=== PATIENT | female | born 1990 | race Two or more races ===

== ENCOUNTER 2022-01-22 14:15 | Inpatient (IN) | payer MEDICAID, OTHER ==
[~2022-01-22] VITALS: Ht 154.9 cm; Wt 66.4 kg
[2022-01-22] MEDS ORDERED: ACETAMINOPHEN 325 MG TAB PO ONE (16:00)
[2022-01-22 16:22] LABS: Albumin 3.2 g/dL (3.4-5.0); BUN/Creatinine Ratio 9.1; Calcium 7.9 mg/dL (8.5-10.1); Magnesium 2.4 mg/dL (1.6-2.6); Potassium 3.6 mmol/L (3.5-5.1)
[2022-01-22 16:24] LABS: Bilirubin, Total 0.6 mg/dL (0.2-1.0); Total Protein 6.9 g/dL (6.4-8.2)
[2022-01-22] MEDS ORDERED: IOHEXOL 350 MG/ML 100ML IJ ONE (16:27)
[2022-01-22 16:33] LABS: INR 0.95 (0.9-1.15); Partial Thromboplastin Time 27.8 sec (24.6-33.4)
[2022-01-22 16:45] LABS: Basophils # (auto) 0 10 ^3/uL (0-0.2); Basophils % (auto) 0.3 % (0.0-2.0); Eosinophils # (auto) 0.2 10 ^3/uL (0-0.8); Hemoglobin 8.2 g/dL (12.2-16.2); Lymphocytes # (auto) 1.2 10 ^3/uL (0.4-5.4); Mean Corpuscular Hemoglobin 31.4 pg (28.0-32.0); Neutrophils # (auto) 11.7 10 ^3/uL (1.6-8.6)
[2022-01-22 16:46] LABS: Eosinophils % (auto) 1.6 % (0.0-7.0); Hematocrit 24.9 % (36.0-46.0); Lymphocytes % (auto) 8.6 % (10.0-50.0); Monocytes # (auto) 0.7 10 ^3/uL (0-1.3); Monocytes % (auto) 4.8 % (0.0-12.0); Neutrophils % (auto) 84.7 % (37.0-80.0); Nucleated Red Blood Cells % 0.2 %; Red Blood Cells 2.62 10^6/uL (4.0-5.20); Red Cell Distribution Width 12.9 % (11.8-14.3); White Blood Cell 13.8 10^3/uL (4.4-10.8)
[2022-01-22] MEDS ORDERED: LACTATED RINGER'S 2,000 ML IV ONE (18:30)
[2022-01-22 18:59] LABS: Urine Bacteria NONE SEEN /hpf (None Seen); Urine Blood Negative /uL (Negative); Urine Mucus FEW (None Seen); Urine WBC <1 /hpf (0 - 5)
[2022-01-22 19:00] LABS: Urine Specific Gravity > 1.050 (1.001-1.035)
[2022-01-22] MEDS ORDERED: SODIUM CHLORIDE 0.9% 2,000 ML IV ONE (19:00)
[2022-01-22] MEDS ORDERED: cefTRIAXone 1GM/50ML D5W 50 ML IV ONE (20:00)
[2022-01-22] MEDS ORDERED: AZITHROMYCIN 500MG/ 250ML 250 ML IV ONE (20:00)
[2022-01-22] MEDS ORDERED: KETOROLAC TROMETH 30 MG/ML 1ML VIAL IV ONE (21:45)
[2022-01-22] MEDS ORDERED: ONDANSETRON HCL 4 MG/2 ML VIAL IV ONE (21:45)
[2022-01-22] MEDS ORDERED: MORPHINE SULFATE INJ 2 MG/ml SYRG IV PRN (22:00)
[2022-01-22] MEDS ORDERED: NITROGLYCERIN 0.4 MG SL TAB SL PRN (22:00)
[2022-01-22] MEDS ORDERED: SODIUM CHLORIDE 0.9% 1,000 ML IV ONE (22:00)
[2022-01-22] MEDS ORDERED: TEMAZEPAM 15 MG CAP PO PRN (22:00)
[2022-01-22] MEDS ORDERED: ONDANSETRON HCL 4 MG/2 ML VIAL IV PRN (22:00)
[2022-01-22 22:24] LABS: Amphetamine Screen, Urine NEGATIVE (NEGATIVE); Barbiturate Scree,Urine NEGATIVE (NEGATIVE); Benzodiazephine Screen, Urine NEGATIVE (NEGATIVE); Cannabinoid Screen, Urine NEGATIVE (NEGATIVE); Cocaine Screen, Urine NEGATIVE (NEGATIVE); Opiate Scree,Urine NEGATIVE (NEGATIVE); Phencyclidine Screen, Urine NEGATIVE (NEGATIVE)
[2022-01-22] MEDS: SODIUM CHLORIDE 0.9% 1,000 ML IV SCH (22:41)
[2022-01-23] MEDS ORDERED: KETOROLAC TROMETH 30 MG/ML 1ML VIAL IV ONE (00:30)
[2022-01-23] MEDS ORDERED: dilTIAZem 25 MG/5 ML VIAL IV ONE (00:30)
[2022-01-23] MEDS: dilTIAZem HCL 50 MG/10 ML VIAL IV ONE ×2 (00:33→00:44)
[2022-01-23] MEDS: ACETAMINOPHEN 325 MG TAB PO PRN ×3 (04:33→23:45)
[2022-01-23 05:01] LABS: Eosinophils # (auto) 0.2 10 ^3/uL (0-0.8); Hemoglobin 7.4 g/dL (12.2-16.2)
[2022-01-23 05:05] LABS: Basophils # (auto) 0 10 ^3/uL (0-0.2); Basophils % (auto) 0.3 % (0.0-2.0); Eosinophils % (auto) 1.4 % (0.0-7.0); Lymphocytes # (auto) 0.8 10 ^3/uL (0.4-5.4); Lymphocytes % (auto) 5.4 % (10.0-50.0); Mean Corpuscular Hemoglobin 31.8 pg (28.0-32.0); Mean Corpuscular Hgb Conc. 33.5 g/dL (32.0-36.0); Mean Corpuscular Volume 95.1 fL (80.0-100.0); Monocytes # (auto) 0.9 10 ^3/uL (0-1.3); Monocytes % (auto) 5.8 % (0.0-12.0); Neutrophils # (auto) 12.8 10 ^3/uL (1.6-8.6); Neutrophils % (auto) 87.1 % (37.0-80.0); Nucleated Red Blood Cells % 0.2 %; Red Blood Cells 2.32 10^6/uL (4.0-5.20); Red Cell Distribution Width 12.6 % (11.8-14.3); White Blood Cell 14.7 10^3/uL (4.4-10.8)
[2022-01-23 05:18] LABS: Albumin 2.7 g/dL (3.4-5.0); Potassium 3.2 mmol/L (3.5-5.1)
[2022-01-23 05:20] LABS: BUN/Creatinine Ratio 7.1
[2022-01-23 05:22] LABS: Bilirubin, Total 0.4 mg/dL (0.2-1.0)
[2022-01-23] MEDS: HYDROcodone-ACET 5/325MG TAB PO PRN ×3 (08:09→20:55)
[2022-01-23] MEDS ORDERED: cefTRIAXone 1GM/50ML D5W 50 ML IV SCH (09:00)
[2022-01-23] MEDS ORDERED: POTASSIUM EFFERVESENT TAB 25 MEQ PO ONE (09:15)
[2022-01-23] MEDS: ENOXAPARIN SOD 40 MG/0.4 ML SYRINGE SC SCH (09:59)
[2022-01-23] MEDS: SODIUM CHLORIDE 0.9% 1,000 ML IV SCH ×2 (09:59→21:32)
[2022-01-23] MEDS ORDERED: PANTOPRAZOLE 40 MG TAB PO SCH (10:00)
[2022-01-23 10:02] LABS: % Iron Saturation 11.3 % (15-50)
[2022-01-23] MEDS ORDERED: SODIUM CHLORIDE 0.9% 500 ML IV ONE (13:15)
[2022-01-23 14:31] LABS: White Blood Cell 16.2 10^3/uL (4.4-10.8)
[2022-01-23 14:33] LABS: Hematocrit 19.7 % (36.0-46.0); Mean Corpuscular Hemoglobin 31.2 pg (28.0-32.0); Mean Corpuscular Hgb Conc. 32.8 g/dL (32.0-36.0); Mean Corpuscular Volume 95.1 fL (80.0-100.0); Red Blood Cells 2.07 10^6/uL (4.0-5.20); Red Cell Distribution Width 13.1 % (11.8-14.3)
[2022-01-23 14:45] LABS: Hemoglobin 6.5 g/dL (12.2-16.2)
[2022-01-23 14:47] LABS: Basophils % (manual) 0 (0.0-2.0); Blast Cells 0; Eosinophils % (manual) 0 (0-7); Metamyelocytes % 0; Myelocytes % 0; Promyelocytes % 0; Reactive Lymphocytes 0
[2022-01-23] MEDS ORDERED: AZITHROMYCIN 500MG/ 250ML 250 ML IV ONE (15:00)
[2022-01-23 16:05] LABS: Band Neutrophils % (manual) 10; Lymphocytes % (manual) 8 (10.0-50.0); Monocytes % (manual) 2 (0-12)
[2022-01-23] MEDS ORDERED: VANCOMYCIN PER PHARMACY 0 MG IV STA (16:46)
[2022-01-23] MEDS ORDERED: CEFEPIME 2 GM in SODIUM CHL 0.9% 50 ML IV ONE (17:00)
[2022-01-23 17:36] VITALS: BP 100/59
[2022-01-23 17:51] VITALS: BP 105/70
[2022-01-23] MEDS ORDERED: VANCOMYCIN PER PHARMACY 0 MG IV SCH (18:30)
[2022-01-23 19:10] VITALS: BP 114/66
[2022-01-23 19:50] VITALS: BP 139/72
[2022-01-23 20:50] VITALS: BP 138/72
[2022-01-23] MEDS: VANCOMYCIN 750mg/250ml 250 ML IV SCH (20:55)
[2022-01-23 22:00] VITALS: BP 139/72
[2022-01-23] MEDS: CEFEPIME 2 GM in SODIUM CHL 0.9% 50 ML IV SCH (22:25)
[2022-01-23] MEDS: SUCRALFATE 1 GM TAB PO SCH (22:25)
[2022-01-23] MEDS: PANTOPRAZOLE 40 MG TAB PO SCH (22:26)
[2022-01-24] MEDS: VANCOMYCIN 750mg/250ml 250 ML IV SCH ×3 (04:50→20:44)
[2022-01-24 05:00] VITALS: BP 108/66
[2022-01-24 05:42] LABS: Basophils # (auto) 0 10 ^3/uL (0-0.2); Eosinophils # (auto) 0.3 10 ^3/uL (0-0.8); Monocytes # (auto) 0.7 10 ^3/uL (0-1.3)
[2022-01-24 05:46] LABS: Basophils % (auto) 0.2 % (0.0-2.0); Eosinophils % (auto) 2.3 % (0.0-7.0); Hematocrit 24.7 % (36.0-46.0); Hemoglobin 8.5 g/dL (12.2-16.2); Lymphocytes # (auto) 1.2 10 ^3/uL (0.4-5.4); Lymphocytes % (auto) 9.5 % (10.0-50.0); Mean Corpuscular Hemoglobin 32.4 pg (28.0-32.0); Mean Corpuscular Hgb Conc. 34.4 g/dL (32.0-36.0); Mean Corpuscular Volume 94.1 fL (80.0-100.0); Monocytes % (auto) 5.6 % (0.0-12.0); Neutrophils # (auto) 10.1 10 ^3/uL (1.6-8.6); Neutrophils % (auto) 82.4 % (37.0-80.0); Nucleated Red Blood Cells % 0.1 %; Red Blood Cells 2.62 10^6/uL (4.0-5.20); Red Cell Distribution Width 12.9 % (11.8-14.3); White Blood Cell 12.2 10^3/uL (4.4-10.8)
[2022-01-24 05:55] LABS: Potassium 3.2 mmol/L (3.5-5.1)
[2022-01-24 06:02] LABS: BUN/Creatinine Ratio 11.8; Calcium 7.7 mg/dL (8.5-10.1)
[2022-01-24] MEDS: CEFEPIME 2 GM in SODIUM CHL 0.9% 50 ML IV SCH ×3 (06:05→21:52)
[2022-01-24] MEDS: SUCRALFATE 1 GM TAB PO SCH ×4 (06:05→21:52)
[2022-01-24] MEDS ORDERED: POTASSIUM EFFERVESENT TAB 25 MEQ PO ONE (08:30)
[2022-01-24] MEDS: ENOXAPARIN SOD 40 MG/0.4 ML SYRINGE SC SCH (08:36)
[2022-01-24] MEDS: PANTOPRAZOLE 40 MG TAB PO SCH ×2 (08:36→21:52)
[2022-01-24] MEDS: HYDROcodone-ACET 5/325MG TAB PO PRN ×2 (08:37→21:16)
[2022-01-24 09:33] VITALS: BP 134/64
[2022-01-24] MEDS ORDERED: POTASSIUM EFFERVESENT TAB 25 MEQ GT ONE (09:45)
[2022-01-24] MEDS ORDERED: AZITHROMYCIN 500MG/ 250ML 250 ML IV SCH (10:00)
[2022-01-24] MEDS: SODIUM CHLORIDE 0.9% 1,000 ML IV SCH ×2 (10:30→21:04)
[2022-01-24 13:08] VITALS: BP 116/69
[2022-01-24 16:43] VITALS: BP 125/74
[2022-01-24 22:00] VITALS: BP 121/75
[2022-01-25] MEDS: VANCOMYCIN 1GM/250ML 250 ML IV SCH ×3 (02:49→18:45)
[2022-01-25 05:00] VITALS: BP 120/74
[2022-01-25] MEDS: CEFEPIME 2 GM in SODIUM CHL 0.9% 50 ML IV SCH ×3 (05:38→21:44)
[2022-01-25] MEDS: SUCRALFATE 1 GM TAB PO SCH ×4 (06:18→21:44)
[2022-01-25 06:32] LABS: BUN/Creatinine Ratio 14.3; Calcium 8.2 mg/dL (8.5-10.1); Potassium 3.7 mmol/L (3.5-5.1)
[2022-01-25 06:36] LABS: Basophils # (auto) 0.1 10 ^3/uL (0-0.2); Basophils % (auto) 0.6 % (0.0-2.0); Eosinophils # (auto) 0.4 10 ^3/uL (0-0.8); Eosinophils % (auto) 3.9 % (0.0-7.0); Hematocrit 27.2 % (36.0-46.0); Hemoglobin 9.2 g/dL (12.2-16.2); Lymphocytes # (auto) 1.5 10 ^3/uL (0.4-5.4); Lymphocytes % (auto) 14.5 % (10.0-50.0); Mean Corpuscular Hemoglobin 31.9 pg (28.0-32.0); Mean Corpuscular Volume 93.9 fL (80.0-100.0); Monocytes # (auto) 0.8 10 ^3/uL (0-1.3); Monocytes % (auto) 7.3 % (0.0-12.0); Neutrophils # (auto) 7.6 10 ^3/uL (1.6-8.6); Neutrophils % (auto) 73.7 % (37.0-80.0); Nucleated Red Blood Cells % 0.2 %; Red Cell Distribution Width 13.6 % (11.8-14.3); White Blood Cell 10.4 10^3/uL (4.4-10.8)
[2022-01-25] MEDS: SODIUM CHLORIDE 0.9% 1,000 ML IV SCH ×2 (08:50→22:28)
[2022-01-25] MEDS: HYDROcodone-ACET 5/325MG TAB PO PRN ×3 (08:56→23:28)
[2022-01-25] MEDS: PANTOPRAZOLE 40 MG TAB PO SCH ×2 (08:57→21:44)
[2022-01-25] MEDS: ENOXAPARIN SOD 40 MG/0.4 ML SYRINGE SC SCH (08:57)
[2022-01-25 09:00] VITALS: BP 137/81
[2022-01-25 13:00] VITALS: BP 127/82
[2022-01-25 17:00] VITALS: BP 130/82
[2022-01-25 22:00] VITALS: BP 137/86
[2022-01-26] MEDS: VANCOMYCIN 1GM/250ML 250 ML IV SCH ×2 (01:56→09:00)
[2022-01-26 05:00] VITALS: BP 128/75
[2022-01-26] MEDS: CEFEPIME 2 GM in SODIUM CHL 0.9% 50 ML IV SCH ×2 (06:22→12:55)
[2022-01-26] MEDS: SUCRALFATE 1 GM TAB PO SCH ×2 (06:22→11:10)
[2022-01-26] MEDS: HYDROcodone-ACET 5/325MG TAB PO PRN (06:46)
[2022-01-26] MEDS: SODIUM CHLORIDE 0.9% 1,000 ML IV SCH (08:12)
[2022-01-26 09:00] VITALS: BP 124/74
[2022-01-26] MEDS: ENOXAPARIN SOD 40 MG/0.4 ML SYRINGE SC SCH (09:46)
[2022-01-26] MEDS: PANTOPRAZOLE 40 MG TAB PO SCH (09:46)
[2022-01-26 13:00] VITALS: BP 141/77
[2022-01-26] MEDS ORDERED: NAPR375T27 PO (15:19)
[2022-01-26 16:07] VITALS: BP 141/77
== END 2022-01-26 17:00 | disposition home or self-care (01) | DRG 813 ==
LOC: ER 14:15 → EDBD 14:15 → TELE 21:50 → TELE-CENTR 01-23 18:39
PROVIDERS: ADMIT Nurse Practitioner; ATTEND Internal Medicine Pulmonary Disease
PROC: 30233N1 Transfusion of Nonautologous Red Blood Cells into Peripheral Vein, Percutaneous Approach (ICD-10-PCS; principal; 2022-01-23)
DX: T81.89XA Other complications of procedures, not elsewhere classified, initial encounter (principal); A41.9 Sepsis, unspecified organism; B34.9 Viral infection, unspecified; E87.6 Hypokalemia; D62 Acute posthemorrhagic anemia; Y83.8 Other surgical procedures as the cause of abnormal reaction of the patient, or of later complication, without mention of misadventure at the time of the procedure; Z20.822 Contact with and (suspected) exposure to COVID-19; Z82.0 Family history of epilepsy and other diseases of the nervous system; Y92.89 Other specified places as the place of occurrence of the external cause
CPT/HCPCS: 36415; 71260; 74177; 80048; 80053; 80202; 80307; 81001; 82270; 83010; 83540; 83550; 83605; 83735; 84443; 84484; 84702; 85007; 85025; 85027; 85379; 85610; 85730; 86850; 86900; 86901; 86920; 87040; 87077; 87186; 87205; 87493; 87804; 93005; 93306; 96361; 96365; 96366; 96368; 96372; 96375; 96376; 99291; G0378; J0696; J1885; J2405

== ENCOUNTER 2024-08-15 15:04 | Emergency (ER) | payer MEDICAID ==
[~2024-08-15] VITALS: Ht 154.9 cm; Wt 62.4 kg
[~2024-08-15 15:04] MED LIST: NAPR-957 PO
[2024-08-15 16:31] VITALS: BP 122/82; PULSE 78; RESP 18; TEMP 98.2; O2SAT 98
--- NOTE | 2024-08-15 16:50 | DVH ---
CLINICAL INDICATION: R hand/wrist pain TECHNIQUE: 3-view right radiographic views of the right were obtained. Comparison: None FINDINGS/IMPRESSION: There is no evidence of acute fracture or dislocation. The visualized joint space is well maintained. The alignment is anatomical.
[2024-08-15] MEDS ORDERED: PRED20TA2 PO (17:01)
--- NOTE | 2024-08-15 17:01 | ED.PDOC ---
Musculoskeletal HPI Comments 34-year-old female presents for right wrist pain x1 week. Onset occurred after opening soda bottle. No other complaint or concern. Chief Complaint: Upper Extremity Time Seen by MD: 15:46 Primary Care Provider: UNKNOWN Reviewed Notes: Nurses Notes, Medications, Allergies Allergies: Coded Allergies: Codeine (Verified Allergy, Unknown, 01/22/22) Home Meds Active Scripts Prednisone (Prednisone) 20 Mg Tab, 60 MG PO DAILY for 5 Days, #15 TAB 0 Refills Prov:DANICA DOE MANAGER NEONATAL 08/15/24 Naproxen (Naproxen) 375 Mg Tab, 1 TAB PO BID PRN for 15 Days, #30 TAB 5 Refills Prov:EISENBERGSANDRINE Hall Tomas VILLA 01/26/22 Information Source: Patient Mode of Arrival: Ambulatory Past Medical History PAST MEDICAL HISTORY: Denies Surgical History: Denies all surgeries [employer] History: No Pertinent SHE[employer]ATE History Family History Family History: Reviewed,noncontributory to illness Social History Smoker: Non-Smoker Alcohol: Denies ETOH Use Drugs: Denies Drug Use Lives In: Home All Other Systems: Reviewed and Negative Physical Exam General Appearance: No Apparent Distress, Normal HEENT: Normal ENT Inspection, Pharynx Normal, TMs Normal Neck: Full Range of Motion, Non-Tender, Normal, Normal Inspection Respiratory: Chest Non-Tender, Lungs Clear, No Accessory Muscle Use, No Respiratory Distress, Normal Breath Sounds Cardiovascular: No Edema, No JVD, No Murmur, No Gallop, Normal Peripheral Pulses, Regular Rate/Rhythm Breast Exam: Deferred Gastrointestinal: No Organomegaly, Non Tender, No Pulsatile Mass, Normal Bowel Sounds, Soft Genitalia: Deferred Pelvic: Deferred Rectal: Deferred Extremities: No calf tenderness, Normal capillary refill, Normal inspection, Normal range of motion, Non-tender, No pedal edema Musculoskeletal : Apperance: Normal Neurologic: Alert, No Motor Deficits, Normal Affect, Normal Mood, No Sensory Deficits Cerebellar Function: Normal Reflexes: Normal Skin: Dry, Normal Color, Warm Lymphatic: No Adenopathy Was a procedure done? Was a procedure done?: No Differential Diagnosis EXT Differential Diagnosis: Sprain X-Ray, Labs, Meds, VS Vital Signs Date Time Temp Pulse Resp B/P (MAP) Pulse Ox O2 Delivery O2 Flow Rate FiO2 08/15/24 16:31 98.2 78 18 122/82 (95) 98 98.2 08/15/24 16:31 78 18 98 Room Air 08/15/24 15:18 98.0 74 17 118/78 (91) X-Ray, Labs, Meds, VS Comment History and examination consistent of muscular injury X-rays ordered, read by radiologist and reviewed by me Take IBU 600 w/ food as needed for pain Recommended heat therapy Reviewed RICE management Avoid heavy lifting or strenuous activity Recommended range of motion exercises and limit heavy activity for 1 week On reevaluation, patient had symptomatic improvement. Patient is stable for discharge at this time. External notes reviewed. Test results and diagnostic imaging interpreted. All diagnostic findings, discharge care, education and instructions provided Follow-up with PCP in 2 to 3 days Patient verbalized understanding and agreed to treatment plan Vital signs stable, afebrile, no acute distress noted Patient ambulatory with strong steady gait Advised to return precautions for any new or worsening symptoms, return to ER immediately for re-evaluation Patient is aware that the purpose of this visit was for an acute medical emergency requiring emergent stabilization. Chronic conditions, including malignancies have not been ruled out. Patient is instructed to follow up with PCP as directed and discharge instructions for continued care and workup. If unable to arrange follow-up, patient is to return to the emergency department for reassessment. Patient (parent or legal guardian if applicable) was given verbal and written discharge instructions and acknowledges understanding. Time of 1ST Reevaluation: 17:00 Reevaluation 1ST: Improved Patient Education/Counseling: Diagnosis, Treatment Family Education/Counseling: Diagnosis, Treatment Departure 1 Departure Time of Disposition: 17:00 Impression: Primary Impression: Wrist sprain Qualified Codes: S63.501A - Unspecified sprain of right wrist, initial encounter Disposition: HOME / SELF CARE / HOMELESS Condition: Fair e-Prescriptions Prednisone (Prednisone) 20 Mg Tab 60 MG PO DAILY for 5 Days, #15 TAB 0 Refills Prov: DANICA DOE NP 08/15/24 Critical Care Note Critical Care Time?: No Stability Stability form required: No Heart Score Heart Score: Heart Score Response (Comments) Value History N/A 0 EKG N/A 0 Age N/A 0 Risk Factors N/A 0 Troponin N/A 0 Total 0 DANICA DOE NP Aug 15, 2024 17:01
== END 2024-08-15 17:32 | disposition home or self-care (01) ==
LOC: ER 15:04
DX: S63.591A Other specified sprain of right wrist, initial encounter (principal); Z88.5 Allergy status to narcotic agent; X58.XXXA Exposure to other specified factors, initial encounter; Y93.89 Activity, other specified; Y92.89 Other specified places as the place of occurrence of the external cause; Y99.8 Other external cause status
CPT/HCPCS: 73130